=== PATIENT | male | born 1950 | race African-American/Black ===

== ENCOUNTER 2019-02-09 09:25 | Inpatient (IN) | payer MEDICARE, OTHER ==
[~2019-02-09] VITALS: Ht 188 cm; Wt 91.0 kg
[2019-02-09] VITALS (31 sets, daily range): BP systolic 88–161; BP diastolic 31–136
[~2019-02-09 09:25] MED LIST: AMLO5TAB88 PO; ASPI-1160 PO; ATOR20TA PO; SOTA80TA25 PO
[2019-02-09] MEDS ORDERED: DILTIAZEM HCL 60MG TABLET PO ONE (09:45)
[2019-02-09 10:02] LABS: EOSINOPHILS % 3.4 % (0.0-5.0); HEMATOCRIT. 45.1 % (42.0-52.0); HEMOGLOBIN. 14.7 g/dL (14.0-18.0); MEAN CORPUSCULAR HEMOGLOBIN 28.7 pg (28.0-32.0); MEAN CORPUSCULAR VOLUME 88.1 fL (80.0-94.0); MEAN PLATELET VOLUME 8.7 fl (7.4-10.4); MONOCYTES % 10.3 % (2.0-8.0); NEUTROPHILS % 37.3 % (40.0-76.0); PLATELET 174 x1000/uL (130-400); RED BLOOD CELL COUNT 5.12 mill/uL (4.7-6.1); RED CELL DISTRIBUTION WIDTH 14.9 % (11.6-14.6)
[2019-02-09 10:07] LABS: INR 1.1; PARTIAL THROMBOPLASTIN TIME 25.1 sec (23.4-31.0)
[2019-02-09 10:09] LABS: CHLORIDE 106 mEq/L (98-107)
[2019-02-09 11:30] LABS: CLARITY URINE CLEAR (CLEAR); COLOR URINE YELLOW (YELLOW); KETONES URINE NEGATIVE (NEGATIVE); LEUKOCYTE ESTERASE URINE NEGATIVE (NEGATIVE); NITRITE URINE NEGATIVE (NEGATIVE); OCCULT BLOOD URINE NEGATIVE (NEGATIVE); PROTEIN URINE NEGATIVE (NEGATIVE); SPECIFIC GRAVITY URINE 1.005 (1.005-1.030); UROBILINOGEN URINE 0.2 E.U./dL (0.2-1.0)
[2019-02-09 11:52] LABS: *BARBITURATES SCREEN URINE NEGATIVE (NEGATIVE)
[2019-02-09 11:53] LABS: *AMPHETAMINES SCREEN URINE NEGATIVE (NEGATIVE); *BENZODIAZEPINES SCREEN URINE NEGATIVE (NEGATIVE); *COCAINE SCREEN URINE NEGATIVE (NEGATIVE); CANNABINOID URINE SCREEN PRESUMTIVE POSITIVE (NEGATIVE); METHADONE URINE SCREEN NEGATIVE (NEGATIVE); OPIATES URINE SCREEN NEGATIVE (NEGATIVE)
[2019-02-09 11:57] LABS: PHENCYCLIDINE URINE SCREEN NEGATIVE (NEGATIVE)
[2019-02-09] MEDS ORDERED: ASPIRIN 81MG EC TABLET PO SCH (15:15)
[2019-02-09] MEDS ORDERED: POTASSIUM CHLORIDE 20MEQ TABLET SR PO NR (15:15)
[2019-02-09] MEDS: LOSARTAN POTASSIUM 25 MG TABLET PO SCH (15:15)
[2019-02-09] MEDS ORDERED: LORAZEPAM 2MG/ML CPJ ONE (15:26)
[2019-02-09] MEDS ORDERED: LORAZEPAM 2MG/ML CPJ IV NR (15:30)
[2019-02-09] MEDS ORDERED: AMIODARONE HCL 150 MG in DEXT 5% WATER 100 ML IV NR (16:00)
[2019-02-09] MEDS ORDERED: ENOXAPARIN 30MG/0.3ML SYR SUBCUT NR (16:00)
[2019-02-09] MEDS ORDERED: AMIODARONE HCL 150 MG in DEXT 5% WATER 100 ML IV ONE (16:00)
[2019-02-09] MEDS: AMIODARONE HCL 900 MG in DEXT 5% WATER 482 ML IV SCH (16:28)
[2019-02-09] MEDS ORDERED: ESMOLOL 2500MG PREMIX 250 ML IV SCH (16:30)
[2019-02-09] MEDS ORDERED: ATOR10TA69 PO (16:38)
[2019-02-09] MEDS ORDERED: BENA5TAB6 PO (16:38)
[2019-02-09] MEDS ORDERED: ATEN-42 PO (16:38)
[2019-02-09] MEDS ORDERED: ENOXAPARIN 80MG/0.8ML SYR SUBCUT NR (16:45)
[2019-02-09] MEDS ORDERED: KCL 20MEQ/100ML PREMIX 100 ML IV NR (18:00)
[2019-02-09] MEDS ORDERED: ENOXAPARIN 40MG/0.4ML SYR SUBCUT SCH (18:00)
[2019-02-09] MEDS ORDERED: DOCUSATE SODIUM 100MG CAPSULE PO PRN (18:00)
[2019-02-09] MEDS: ATENOLOL 25MG TABLET PO SCH (18:13)
[2019-02-09] MEDS: ATORVASTATIN CALCIUM 10MG TABLET PO SCH (18:22)
[2019-02-09] MEDS ORDERED: METOPROLOL TARTRATE 50MG TABLET PO SCH (21:00)
[2019-02-09] MEDS: SODIUM CHLORIDE 0.9% INJ 3ML FLUSH IVF SCH (21:48)
[2019-02-09] MEDS: BENAZEPRIL 5MG TABLET PO SCH (21:54)
[2019-02-10] VITALS (83 sets, daily range): BP systolic 92–179; BP diastolic 42–115
[2019-02-10 05:41] LABS: BASOPHILS % 0.7 % (0.0-2.0); EOSINOPHILS % 2.8 % (0.0-5.0); HEMATOCRIT. 45.4 % (42.0-52.0); HEMOGLOBIN. 14.8 g/dL (14.0-18.0); MEAN CORPUSCULAR HEMOGLOBIN 28.7 pg (28.0-32.0); MEAN CORPUSCULAR VOLUME 88.2 fL (80.0-94.0); MEAN PLATELET VOLUME 8.4 fl (7.4-10.4); MONOCYTES % 8.9 % (2.0-8.0); NEUTROPHILS % 46.6 % (40.0-76.0); PLATELET 149 x1000/uL (130-400); RED BLOOD CELL COUNT 5.14 mill/uL (4.7-6.1); RED CELL DISTRIBUTION WIDTH 14.7 % (11.6-14.6)
[2019-02-10 06:01] LABS: CHLORIDE 109 mEq/L (98-107)
[2019-02-10] MEDS: SODIUM CHLORIDE 0.9% INJ 3ML FLUSH IVF SCH ×3 (06:17→21:35)
[2019-02-10 06:20] LABS: LDL CHOLESTEROL 75 mg/dL (5-100)
[2019-02-10 06:22] LABS: HDL CHOLESTEROL 44 mg/dL (40-59)
[2019-02-10] MEDS: ATENOLOL 25MG TABLET PO SCH (09:29)
[2019-02-10] MEDS: BENAZEPRIL 5MG TABLET PO SCH (09:29)
[2019-02-10] MEDS: LOSARTAN POTASSIUM 25 MG TABLET PO SCH ×2 (09:29→18:03)
[2019-02-10] MEDS: ATORVASTATIN CALCIUM 10MG TABLET PO SCH (09:30)
[2019-02-10] MEDS ORDERED: CLONIDINE 0.2MG TABLET PO PRN (10:00)
[2019-02-10] MEDS ORDERED: CLONIDINE 0.1MG TABLET PO PRN (10:00)
[2019-02-10] MEDS ORDERED: ASPIRIN/SOD BICARB/CITRIC ACID 324MG TAB EFF ONE (12:36)
[2019-02-10] MEDS ORDERED: IODIXANOL 320MG/ML 100 ML BOTTLE IV ONE ×2 (13:03→14:24)
[2019-02-10] MEDS ORDERED: MIDAZOLAM HCL 2 MG/2 ML VIAL ONE ×2 (13:03→14:35)
[2019-02-10] MEDS ORDERED: FENTANYL CITRATE/PF 50MCG/ML 2ML VIAL ONE (13:03)
[2019-02-10] MEDS ORDERED: LIDOCAINE HCL 1% 20ML VIAL (Pyxis) INJ ONE ×2 (13:23→14:41)
[2019-02-10] MEDS ORDERED: IOHEXOL-300 100 ML BOTTLE ONE (14:05)
[2019-02-10] MEDS ORDERED: PROTAMINE SULFATE 10MG/ML VIAL 5ML IV ONE (14:45)
[2019-02-10] MEDS ORDERED: ONDANSETRON HCL 4MG/2ML INJ IV PRN (15:00)
[2019-02-10] MEDS ORDERED: ATROPINE SULFATE 1MG/10ML SYR IV PRN (15:00)
[2019-02-10] MEDS ORDERED: ACETAMINOPHEN 325MG TABLET PO PRN (15:00)
[2019-02-10] MEDS ORDERED: SODIUM CHLORIDE 0.45% 600 ML IV ONE (15:00)
[2019-02-10] MEDS ORDERED: MORPHINE SULFATE 4 MG/ML CPJ (NOT FOR IM USE) IV PRN (15:00)
[2019-02-10] MEDS ORDERED: NICARDIPINE 100MCG/ML 10ML VIAL (CATH LAB) IV ONE (16:39)
[2019-02-10] MEDS ORDERED: PHENYLEPHRINE 100MCG/ML 10ML VIAL (CATH LAB) IV ONE (16:39)
[2019-02-10] MEDS ORDERED: NITROGLYCERIN 50MCG/ML 10ML VIAL (CATH LAB) IV ONE (16:39)
[2019-02-10] MEDS ORDERED: HEPARIN SODIUM 1,000 UNIT/1ML VIAL IV ONE (16:39)
[2019-02-10] MEDS: AMIODARONE HCL 900 MG in DEXT 5% WATER 482 ML IV SCH (17:29)
[2019-02-10] MEDS: ASPIRIN 81MG EC TABLET PO SCH (18:02)
[2019-02-10] MEDS: ACETAMINOPHEN 325MG TABLET PO PRN (22:07)
[2019-02-11] VITALS (60 sets, daily range): BP systolic 114–170; BP diastolic 37–112
[2019-02-11 05:45] LABS: BASOPHILS % 0.5 % (0.0-2.0); EOSINOPHILS % 1.8 % (0.0-5.0); HEMATOCRIT. 47.4 % (42.0-52.0); HEMOGLOBIN. 15.3 g/dL (14.0-18.0); LYMPHOCYTES % 35.5 % (20.0-50.0); MEAN CORPUSCULAR HEMOGLOBIN 28.5 pg (28.0-32.0); MEAN CORPUSCULAR VOLUME 88.5 fL (80.0-94.0); MONOCYTES % 9.7 % (2.0-8.0); NEUTROPHILS % 52.5 % (40.0-76.0); PLATELET 147 x1000/uL (130-400); RED BLOOD CELL COUNT 5.36 mill/uL (4.7-6.1); RED CELL DISTRIBUTION WIDTH 14.8 % (11.6-14.6)
[2019-02-11] MEDS: SODIUM CHLORIDE 0.9% INJ 3ML FLUSH IVF SCH ×3 (06:01→22:12)
[2019-02-11 06:11] LABS: CHLORIDE 108 mEq/L (98-107)
[2019-02-11 06:22] LABS: CREATINE KINASE 118 IU/L (39-308)
[2019-02-11 06:23] LABS: CREATINE KINASE MB FRACTION 2.4 ng/mL (0.5-3.6)
[2019-02-11] MEDS: ENOXAPARIN 80MG/0.8ML SYR SUBCUT SCH ×2 (06:46→18:35)
[2019-02-11] MEDS ORDERED: ENOXAPARIN 80MG/0.8ML SYR SUBCUT SCH (07:00)
[2019-02-11] MEDS: LOSARTAN POTASSIUM 25 MG TABLET PO SCH ×2 (10:33→17:22)
[2019-02-11] MEDS: ASPIRIN 81MG EC TABLET PO SCH ×2 (10:33→17:22)
[2019-02-11] MEDS: ATORVASTATIN CALCIUM 10MG TABLET PO SCH (10:34)
[2019-02-11] MEDS: AMIODARONE HCL 200 MG TABLET PO SCH ×2 (11:13→20:49)
[2019-02-11] MEDS: CEPHALEXIN 250MG CAPSULE PO SCH (17:23)
[2019-02-11] MEDS ORDERED: NA PHOS,M-B/NA PHOS,DI-BA ENEMA 118ML PR PRN (20:00)
[2019-02-11] MEDS ORDERED: MAGNESIUM HYDROXIDE 400MG/5ML 30ML UDC PO PRN (20:00)
[2019-02-11] MEDS ORDERED: DIPHENHYDRAMINE 50MG/ML VIAL IV PRN (20:00)
[2019-02-12] VITALS (10 sets, daily range): BP systolic 120–170; BP diastolic 80–96
[2019-02-12] MEDS: CEPHALEXIN 250MG CAPSULE PO SCH ×4 (00:27→16:41)
[2019-02-12] MEDS: ACETAMINOPHEN 325MG TABLET PO PRN ×2 (00:40→17:36)
[2019-02-12] MEDS: SODIUM CHLORIDE 0.9% INJ 3ML FLUSH IVF SCH ×2 (06:01→12:21)
[2019-02-12] MEDS: ENOXAPARIN 80MG/0.8ML SYR SUBCUT SCH (06:20)
[2019-02-12 06:38] LABS: HEMATOCRIT 47.2 % (42.0-52.0); HEMOGLOBIN 15.6 g/dL (14.0-18.0); MEAN CORPUSCULAR VOLUME 87.9 fL (80.0-94.0); PLATELET 145 x1000/uL (130-400); RED BLOOD CELL COUNT 5.37 mill/uL (4.7-6.1); RED CELL DISTRIBUTION WIDTH 14.8 % (11.6-14.6)
[2019-02-12] MEDS: ATORVASTATIN CALCIUM 10MG TABLET PO SCH (09:45)
[2019-02-12] MEDS: AMIODARONE HCL 200 MG TABLET PO SCH (09:45)
[2019-02-12] MEDS: LOSARTAN POTASSIUM 25 MG TABLET PO SCH ×2 (09:46→16:41)
[2019-02-12] MEDS: ASPIRIN 81MG EC TABLET PO SCH ×2 (09:46→16:41)
== END 2019-02-12 18:30 | disposition home or self-care (01) | DRG 287 ==
LOC: ER 09:49 → 6WST 11:29 → EDBEDREQ 11:34 → MICUNO 16:08 → 3WST 02-11 14:45
PROVIDERS: ADMIT Ophthalmology; ATTEND Ophthalmology
PROC: 02JA3ZZ Inspection of Heart, Percutaneous Approach (ICD-10-PCS; principal; 2019-02-10)
PROC: B2181ZZ Fluoroscopy of Left Internal Mammary Bypass Graft using Low Osmolar Contrast (ICD-10-PCS; 2019-02-10)
PROC: B2131ZZ Fluoroscopy of Multiple Coronary Artery Bypass Grafts using Low Osmolar Contrast (ICD-10-PCS; 2019-02-10)
PROC: B2111ZZ Fluoroscopy of Multiple Coronary Arteries using Low Osmolar Contrast (ICD-10-PCS; 2019-02-10)
DX: I47.2 Ventricular tachycardia (principal); I42.0 Dilated cardiomyopathy; I31.3 Pericardial effusion (noninflammatory); E78.5 Hyperlipidemia, unspecified; I48.1 Persistent atrial fibrillation; I25.10 Atherosclerotic heart disease of native coronary artery without angina pectoris; I25.5 Ischemic cardiomyopathy; N40.0 Benign prostatic hyperplasia without lower urinary tract symptoms; E78.00 Pure hypercholesterolemia, unspecified; R74.0 Nonspecific elevation of levels of transaminase and lactic acid dehydrogenase [LDH]; I80.8 Phlebitis and thrombophlebitis of other sites; I11.9 Hypertensive heart disease without heart failure; I45.10 Unspecified right bundle-branch block; I25.2 Old myocardial infarction; Z95.1 Presence of aortocoronary bypass graft; Z95.5 Presence of coronary angioplasty implant and graft; Z95.810 Presence of automatic (implantable) cardiac defibrillator; Z85.46 Personal history of malignant neoplasm of prostate; Z90.79 Acquired absence of other genital organ(s); Z79.899 Other long term (current) drug therapy; Z79.82 Long term (current) use of aspirin
CPT/HCPCS: 36415; 71045; 73560; 80048; 80061; 80305; 82550; 82553; 83735; 83880; 84443; 84484; 85027; 85347; 93005; 93306; 93455; 93571; 93970; 96365; 96367; 96375; 99291; C1725; C1760; C1769; C1887; C1893; J0282; J1200; J1644; J1650; J2060; J2250; J2370; J2720; J3010; J3480; J3490; J7050; J7060; Q9967

== ENCOUNTER 2019-02-13 18:29 | Inpatient (IN) | payer OTHER ==
[~2019-02-13] VITALS: Ht 193 cm; Wt 80.8 kg
[~2019-02-13 18:29] MED LIST changes: -AMLO5TAB88 PO; -ASPI-1160 PO; +ATEN-42 PO; +ATOR10TA69 PO; -ATOR20TA PO; +BENA5TAB6 PO; -SOTA80TA25 PO
[2019-02-13 19:15] LABS: BASOPHILS % 0.7 % (0.0-2.0); EOSINOPHILS % 0.4 % (0.0-5.0); HEMATOCRIT. 46.4 % (42.0-52.0); HEMOGLOBIN. 15.2 g/dL (14.0-18.0); LYMPHOCYTES % 27.8 % (20.0-50.0); MEAN CORPUSCULAR HEMOGLOBIN 28.8 pg (28.0-32.0); MEAN CORPUSCULAR VOLUME 88.1 fL (80.0-94.0); MEAN PLATELET VOLUME 8.8 fl (7.4-10.4); MONOCYTES % 11.9 % (2.0-8.0); NEUTROPHILS % 59.2 % (40.0-76.0); PLATELET 166 x1000/uL (130-400); RED BLOOD CELL COUNT 5.26 mill/uL (4.7-6.1); RED CELL DISTRIBUTION WIDTH 14.5 % (11.6-14.6)
[2019-02-13 19:20] LABS: CHLORIDE 106 mEq/L (98-107)
[2019-02-13 19:24] LABS: D-DIMER 1.79 mg/L FEU (<0.50); ETHANOL BLOOD < 10 mg/dL; PARTIAL THROMBOPLASTIN TIME 26.5 sec (23.4-31.0); PROTHROMBIN TIME 10.7 sec (9.6-11.0)
[2019-02-13] MEDS ORDERED: AMIODARONE HCL 900 MG in DEXT 5% WATER 482 ML IV SCH (19:30)
[2019-02-13] MEDS ORDERED: IPRATROPIUM/ALBUTEROL 0.5-3(2.5)MG/3ML NEB INH PRN (22:30)
[2019-02-13] MEDS ORDERED: DOCUSATE SODIUM 100MG CAPSULE PO PRN (22:30)
[2019-02-13 22:35] LABS: CLARITY URINE CLEAR (CLEAR); COLOR URINE YELLOW (YELLOW); KETONES URINE NEGATIVE (NEGATIVE); LEUKOCYTE ESTERASE URINE NEGATIVE (NEGATIVE); NITRITE URINE NEGATIVE (NEGATIVE); OCCULT BLOOD URINE NEGATIVE (NEGATIVE); PH URINE 6.5 (4.5-8.0); PROTEIN URINE NEGATIVE (NEGATIVE); UROBILINOGEN URINE 0.2 E.U./dL (0.2-1.0)
[2019-02-13 22:50] LABS: *AMPHETAMINES SCREEN URINE NEGATIVE (NEGATIVE); *BARBITURATES SCREEN URINE NEGATIVE (NEGATIVE)
[2019-02-13 22:51] LABS: *BENZODIAZEPINES SCREEN URINE NEGATIVE (NEGATIVE); *COCAINE SCREEN URINE NEGATIVE (NEGATIVE); METHADONE URINE SCREEN NEGATIVE (NEGATIVE); OPIATES URINE SCREEN NEGATIVE (NEGATIVE); PHENCYCLIDINE URINE SCREEN NEGATIVE (NEGATIVE)
[2019-02-13 22:52] LABS: CANNABINOID URINE SCREEN PRESUMTIVE POSITIVE (NEGATIVE)
[2019-02-14] VITALS (25 sets, daily range): BP systolic 99–201; BP diastolic 40–116
[2019-02-14] MEDS ORDERED: AMIODARONE HCL 900 MG in DEXT 5% WATER 500 ML IV PRN (04:00)
[2019-02-14] MEDS: AMIODARONE HCL 900 MG in DEXT 5% WATER 482 ML IV PRN ×2 (04:21→16:27)
[2019-02-14] MEDS ORDERED: ASPI-1159 PO (04:52)
[2019-02-14] MEDS: SODIUM CHLORIDE 0.9% INJ 3ML FLUSH IVF SCH ×3 (06:48→22:07)
[2019-02-14 07:06] LABS: BASOPHILS % 0.3 % (0.0-2.0); EOSINOPHILS % 0.7 % (0.0-5.0); HEMATOCRIT. 42.5 % (42.0-52.0); LYMPHOCYTES % 32.4 % (20.0-50.0); MEAN CORPUSCULAR VOLUME 88.2 fL (80.0-94.0); MEAN PLATELET VOLUME 9.1 fl (7.4-10.4); MONOCYTES % 14.2 % (2.0-8.0); NEUTROPHILS % 52.4 % (40.0-76.0); PLATELET 155 x1000/uL (130-400); RED BLOOD CELL COUNT 4.82 mill/uL (4.7-6.1); RED CELL DISTRIBUTION WIDTH 14.4 % (11.6-14.6)
[2019-02-14 07:23] LABS: CHLORIDE 108 mEq/L (98-107)
[2019-02-14] MEDS ORDERED: BENAZEPRIL 5MG TABLET PO SCH (09:00)
[2019-02-14] MEDS ORDERED: ENOXAPARIN 40MG/0.4ML SYR SUBCUT SCH (09:00)
[2019-02-14] MEDS ORDERED: ATENOLOL 25MG TABLET PO SCH (09:00)
[2019-02-14] MEDS ORDERED: ENOXAPARIN 40MG/0.4ML SYR SUBCUT NR (10:30)
[2019-02-14] MEDS ORDERED: AMIODARONE HCL 200 MG TABLET PO SCH (11:15)
[2019-02-14] MEDS ORDERED: CLONIDINE 0.1MG TABLET PO PRN (12:30)
[2019-02-14] MEDS ORDERED: CLONIDINE 0.2MG TABLET PO PRN (12:30)
[2019-02-14] MEDS: AMIODARONE HCL 200 MG TABLET PO SCH (16:27)
[2019-02-14] MEDS ORDERED: ATORVASTATIN CALCIUM 40MG TABLET PO SCH (21:00)
[2019-02-14] MEDS: LOSARTAN POTASSIUM 25 MG TABLET PO SCH (22:02)
[2019-02-14] MEDS: ENOXAPARIN 80MG/0.8ML SYR SUBCUT SCH (22:06)
[2019-02-14] MEDS: ATENOLOL 25MG TABLET PO SCH (22:06)
[2019-02-15] VITALS (10 sets, daily range): BP systolic 111–160; BP diastolic 64–104
[2019-02-15] MEDS: ACETAMINOPHEN 325MG TABLET PO PRN ×2 (02:16→19:58)
[2019-02-15] MEDS ORDERED: ZOLPIDEM TARTRATE 5MG TABLET PO PRN (03:45)
[2019-02-15 06:49] LABS: CHLORIDE 108 mEq/L (98-107)
[2019-02-15 06:52] LABS: BASOPHILS % 0.5 % (0.0-2.0); EOSINOPHILS % 0.6 % (0.0-5.0); HEMATOCRIT. 44.1 % (42.0-52.0); HEMOGLOBIN. 14.5 g/dL (14.0-18.0); LYMPHOCYTES % 32.6 % (20.0-50.0); MEAN CORPUSCULAR VOLUME 88.1 fL (80.0-94.0); MEAN PLATELET VOLUME 8.9 fl (7.4-10.4); MONOCYTES % 13.8 % (2.0-8.0); NEUTROPHILS % 52.5 % (40.0-76.0); PLATELET 166 x1000/uL (130-400); RED CELL DISTRIBUTION WIDTH 14.5 % (11.6-14.6)
[2019-02-15] MEDS: SODIUM CHLORIDE 0.9% INJ 3ML FLUSH IVF SCH ×2 (07:36→13:28)
[2019-02-15] MEDS: AMIODARONE HCL 200 MG TABLET PO SCH ×2 (08:37→13:00)
[2019-02-15] MEDS: ATENOLOL 25MG TABLET PO SCH (08:38)
[2019-02-15] MEDS: LOSARTAN POTASSIUM 25 MG TABLET PO SCH (08:38)
[2019-02-15] MEDS: ENOXAPARIN 80MG/0.8ML SYR SUBCUT SCH (09:00)
== END 2019-02-15 20:40 | disposition home or self-care (01) | DRG 315 ==
LOC: ER 18:29 → 3WST 20:35 → EDBEDREQTM 20:38 → EDBEDREQSVC 20:38 → EDBEDREQ 20:38 → EDBEDREQSVC 23:36 → EDBEDREQTM 23:36 → EDBEDREQSVC 02-14 00:47 → EDBEDREQTM 02-14 00:47 → ENRESERV 02-14 01:45
PROVIDERS: ADMIT Ophthalmology; ATTEND Ophthalmology
PROC: 4B02XTZ Measurement of Cardiac Defibrillator, External Approach (ICD-10-PCS; principal; 2019-02-13)
DX: T82.119A Breakdown (mechanical) of unspecified cardiac electronic device, initial encounter (principal); I48.92 Unspecified atrial flutter; I31.3 Pericardial effusion (noninflammatory); I47.2 Ventricular tachycardia; E78.5 Hyperlipidemia, unspecified; I25.5 Ischemic cardiomyopathy; Y71.2 Prosthetic and other implants, materials and accessory cardiovascular devices associated with adverse incidents; I48.91 Unspecified atrial fibrillation; E78.00 Pure hypercholesterolemia, unspecified; I11.9 Hypertensive heart disease without heart failure; I25.10 Atherosclerotic heart disease of native coronary artery without angina pectoris; I25.82 Chronic total occlusion of coronary artery; I80.9 Phlebitis and thrombophlebitis of unspecified site; N40.0 Benign prostatic hyperplasia without lower urinary tract symptoms; Z79.01 Long term (current) use of anticoagulants; Z86.79 Personal history of other diseases of the circulatory system; Y92.89 Other specified places as the place of occurrence of the external cause; Z95.1 Presence of aortocoronary bypass graft; Z95.810 Presence of automatic (implantable) cardiac defibrillator; I25.2 Old myocardial infarction
CPT/HCPCS: 36415; 71045; 80048; 80305; 80320; 83735; 83880; 84443; 84484; 85379; 86850; 86900; 93005; 96365; 99285; J0282; J1650; J7060; G0480

== ENCOUNTER 2019-05-06 00:03 | Emergency (ER) | payer OTHER ==
[~2019-05-06] VITALS: Ht 190.5 cm; Wt 88.0 kg
[~2019-05-06 00:03] MED LIST changes: +ASPI-1393 PO
[2019-05-06] MEDS ORDERED: LIDOCAINE HCL/PF 1% 10 MG/ML 5ML VIAL IJ ONE (02:15)
[2019-05-06] MEDS ORDERED: ACETAMINOPHEN WITH CODEINE 300/30MG TABLET PO ONE (02:15)
[2019-05-06] MEDS ORDERED: BACITRACIN ZINC OINT UDPKT TOP ONE (02:15)
[2019-05-06] MEDS ORDERED: BACITRACIN 15GM TUBE TOP NR (06:00)
[2019-05-06 06:45] VITALS: BP 119/84
== END 2019-05-06 07:00 | disposition home or self-care (01) ==
LOC: ER 00:03
DX: S81.812A Laceration without foreign body, left lower leg, initial encounter (principal); S01.511A Laceration without foreign body of lip, initial encounter; W01.110A Fall on same level from slipping, tripping and stumbling with subsequent striking against sharp glass, initial encounter; Y93.89 Activity, other specified; Y92.018 Other place in single-family (private) house as the place of occurrence of the external cause
CPT/HCPCS: 12002; 12011; 73590; 99284; J3490

== ENCOUNTER 2021-01-11 22:19 | Emergency (ER) | payer OTHER ==
[~2021-01-11] VITALS: Ht 190.5 cm; Wt 91.0 kg
[~2021-01-11 22:19] MED LIST changes: -ASPI-1393 PO; +ASPI-1497 PO
[2021-01-11 23:57] LABS: BASOPHILS % 1.4 % (0.0-2.0); EOSINOPHILS % 1.4 % (0.0-5.0); HEMATOCRIT. 40.4 % (42.0-52.0); HEMOGLOBIN. 13.5 g/dL (14.0-18.0); MEAN CORPUSCULAR HEMOGLOBIN 29.1 pg (28.0-32.0); MEAN CORPUSCULAR VOLUME 87.3 fL (80.0-94.0); MONOCYTES % 8.6 % (2.0-8.0); NEUTROPHILS % 63.6 % (40.0-76.0); PLATELET 154 x1000/uL (130-400); RED BLOOD CELL COUNT 4.63 mill/uL (4.7-6.1); RED CELL DISTRIBUTION WIDTH 14.9 % (11.6-14.6)
[2021-01-12 00:04] LABS: CHLORIDE 110 mEq/L (98-107)
[2021-01-12] MEDS ORDERED: ASPIRIN 325MG EC TABLET PO ONE (01:00)
[2021-01-12 01:30] VITALS: BP 111/84
== END 2021-01-12 01:35 | disposition left against medical advice (07) ==
LOC: ER 22:19 → CANRESERV 01-12 07:53 → ENRESERV 01-12 07:53 → CANBEDREQ 01-12 08:05
DX: R77.8 Other specified abnormalities of plasma proteins (principal); I10 Essential (primary) hypertension; Z98.890 Other specified postprocedural states; Z95.810 Presence of automatic (implantable) cardiac defibrillator; Z95.1 Presence of aortocoronary bypass graft
CPT/HCPCS: 36415; 71045; 80053; 83880; 84484; 85025; 93005; 99285

== ENCOUNTER 2024-04-14 12:22 | Inpatient (IN) | payer OTHER, MEDICARE ==
[~2024-04-14] VITALS: Ht 170.2 cm; Wt 76.2 kg
[~2024-04-14 12:22] MED LIST changes: +AMI2 PO; -ASPI-1497 PO; -ATEN-42 PO; -ATOR10TA69 PO; +BENA40TA91 PO; -BENA5TAB6 PO; +MEX150 PO
[2024-04-14 12:55] LABS: BASOPHILS % 1.5 % (0.0-2.0); HEMATOCRIT. 47.3 % (42.0-52.0); HEMOGLOBIN. 15.5 g/dL (14.0-18.0); LYMPHOCYTES % 35.4 % (20.0-50.0); MEAN CORPUSCULAR HEMOGLOBIN 29.1 pg (28.0-32.0); MEAN CORPUSCULAR HGB CONC 32.7 g/dL (31.0-37.0); MEAN CORPUSCULAR VOLUME 88.9 fL (80.0-94.0); MEAN PLATELET VOLUME 8.8 fl (7.4-10.4); MONOCYTES % 10.2 % (2.0-8.0); NEUTROPHILS % 51.9 % (40.0-76.0); PLATELET 167 x1000/uL (130-400); RED BLOOD CELL COUNT 5.31 mill/uL (4.7-6.1); RED CELL DISTRIBUTION WIDTH 14.8 % (11.6-14.6); WHITE BLOOD COUNT 4.3 x1000/uL (4.5-11.0)
[2024-04-14 13:03] LABS: CHLORIDE 105 mEq/L (98-107); SODIUM 137 mEq/L (136-145)
[2024-04-14 13:04] LABS: CALCIUM 9.9 mg/dL (8.7-10.4); CARBON DIOXIDE 22 mEq/L (21-32)
[2024-04-14 13:09] LABS: CREATININE 1.4 mg/dL (0.6-1.3); GLUCOSE 123 mg/dL (70-105); UREA NITROGEN BLOOD 13 mg/dL (9-23)
[2024-04-14 13:32] LABS: TROPONIN I HIGH SENSITIVITY 180 ng/L (3.0-53)
[2024-04-14] MEDS: ACETAMINOPHEN 325MG TABLET PO ONE (13:47)
[2024-04-14] MEDS: CLONIDINE 0.1MG TABLET PO ONE (13:50)
[2024-04-14] MEDS: SODIUM CHLORIDE 0.9% 500 ML IV ONE (15:00)
[2024-04-14] MEDS: HYDRALAZINE 20MG/ML VIAL IV ONE (15:00)
[2024-04-14 15:37] LABS: CLARITY URINE CLEAR (CLEAR); COLOR URINE YELLOW (YELLOW); GLUCOSE URINE NEGATIVE (NEGATIVE); KETONES URINE NEGATIVE (NEGATIVE); LEUKOCYTE ESTERASE URINE NEGATIVE (NEGATIVE); NITRITE URINE NEGATIVE (NEGATIVE); OCCULT BLOOD URINE NEGATIVE (NEGATIVE); PH URINE 6.5 (4.5-8.0); PROTEIN URINE NEGATIVE (NEGATIVE); SPECIFIC GRAVITY URINE 1.009 (1.005-1.030); UROBILINOGEN URINE 0.2 E.U./dL (0.2-1.0)
[2024-04-14 17:00] LABS: TROPONIN I HIGH SENSITIVITY 173 ng/L (3.0-53)
[2024-04-14] MEDS: ASPIRIN 81MG TABLET PO ONE (17:26)
[2024-04-14] MEDS ORDERED: ATOR10TA MT (18:56)
[2024-04-14 19:03] VITALS: BP 162/100; PULSE 73; RESP 20; TEMP 97.8
[2024-04-14] MEDS: PNEUMOCOCCAL 23-VAL P-SAC VAC 0.5 ML IM ONE (19:45)
[2024-04-14] MEDS: CLONIDINE 0.1MG TABLET PO NR (20:44)
[2024-04-14 20:55] VITALS: BP 150/88; PULSE 61; RESP 18
[2024-04-14] MEDS ORDERED: CLONIDINE 0.1MG TABLET PO PRN (21:00)
[2024-04-14] MEDS ORDERED: MEXILETINE HCL 150MG CAPSULE PO SCH (21:00)
[2024-04-14] MEDS: ISOSORBIDE MONONITRATE 30MG TABLET SR 24HR PO SCH (21:00)
[2024-04-14] MEDS ORDERED: ACETAMINOPHEN 325MG TABLET PO PRN (21:00)
[2024-04-14] MEDS ORDERED: DOCUSATE SODIUM 100MG CAPSULE PO PRN (21:00)
[2024-04-14] MEDS ORDERED: MAGNESIUM/ALUMINUM HYDROXIDE/SIMETHICONE 30ML UDC PO PRN (21:00)
[2024-04-14] MEDS: AMIODARONE HCL 200 MG TABLET PO SCH (21:00)
[2024-04-14] MEDS: LISINOPRIL 40MG TABLET PO SCH (21:00)
[2024-04-14] MEDS ORDERED: ATORVASTATIN CALCIUM 10MG TABLET PO SCH (21:00)
[2024-04-14 21:13] LABS: HEPATITIS B SURFACE ANTIGEN NEGATIVE (Negative)
[2024-04-14 21:34] LABS: HEPATITIS C AB NON REACTIVE (Neg) (Negative)
[2024-04-14 23:42] VITALS: BP 98/59; PULSE 60; RESP 18
[2024-04-15] VITALS (7 sets, daily range): BP systolic 100–137; BP diastolic 48–69; PULSE 60–69; RESP 17–22; TEMP 97.8–98.6; O2SAT 96
[2024-04-15] MEDS ORDERED: MEXILETINE HCL 150MG CAPSULE PO SCH (09:00)
[2024-04-15] MEDS: ENOXAPARIN 40MG/0.4ML SYR SUBCUT SCH (10:08)
[2024-04-15] MEDS ORDERED: CARV12.545 MT (17:11)
[2024-04-15] MEDS ORDERED: CARV3.1242 MT (17:51)
[2024-04-15] MEDS ORDERED: HYDR25TA78 MT (17:51)
[2024-04-15] MEDS ORDERED: ATORVASTATIN CALCIUM 10MG TABLET PO SCH (21:00)
== END 2024-04-15 17:40 | disposition home or self-care (01) | DRG 304 ==
LOC: ER 12:22 → 5WST 15:43 → EDBEDREQ 15:44 → 3WST 18:24 → 5WST 18:50 → 3WST 18:50
PROVIDERS: ADMIT Internal Medicine; ATTEND Internal Medicine
DX: I16.0 Hypertensive urgency (principal); N17.0 Acute kidney failure with tubular necrosis; I48.92 Unspecified atrial flutter; I50.22 Chronic systolic (congestive) heart failure; I11.0 Hypertensive heart disease with heart failure; I25.10 Atherosclerotic heart disease of native coronary artery without angina pectoris; Z85.46 Personal history of malignant neoplasm of prostate; Z95.1 Presence of aortocoronary bypass graft; Z95.5 Presence of coronary angioplasty implant and graft; Z79.899 Other long term (current) drug therapy
CPT/HCPCS: 36415; 71045; 80048; 81003; 84484; 85025; 86705; 87340; 93005; 99291; J0360; J1650; J7040

== ENCOUNTER 2024-04-17 20:16 | Emergency (ER) | payer OTHER ==
[~2024-04-17] VITALS: Ht 193 cm; Wt 82.0 kg
[~2024-04-17 20:16] MED LIST changes: +ATOR10TA MT; +CARV3.1242 MT; +HYDR25TA78 MT
[2024-04-17 21:09] VITALS: O2SAT 100
[2024-04-17 23:05] VITALS: BP 126/77; PULSE 89; RESP 16; TEMP 98.1
== END 2024-04-17 23:15 | disposition home or self-care (01) ==
LOC: ER 20:16
DX: I10 Essential (primary) hypertension (principal); F12.90 Cannabis use, unspecified, uncomplicated; I11.9 Hypertensive heart disease without heart failure; I25.2 Old myocardial infarction; Z98.890 Other specified postprocedural states
CPT/HCPCS: 93005; 99283